=== PATIENT | female | born 1950 | race Caucasian/White ===

== ENCOUNTER 2016-08-17 05:45 | Observation (INO) | payer BC ==
[2016-08-17] MEDS ORDERED: LIDOCAINE 1% 2 ML INJ ID PRN (05:47)
[2016-08-17] MEDS ORDERED: LR 1,000 ML IV ONE (05:47)
[2016-08-17] MEDS ORDERED: PHENAZOPYRIDINE HCL 200 MG TAB ONE (06:32)
[2016-08-17] MEDS ORDERED: CEFAZOLIN 2 GM/DEXTROSE/100 ML BAG IV ONE (06:32)
[2016-08-17] MEDS ORDERED: PHENAZOPYRIDINE HCL 200 MG TAB PO ONE (06:45)
[2016-08-17] MEDS ORDERED: PROPOFOL 200 MG/20 ML VIAL ONE (07:14)
[2016-08-17] MEDS ORDERED: MIDAZOLAM 2 MG/2 ML VIAL ONE (07:14)
[2016-08-17] MEDS ORDERED: DEXAMETHASONE 4 MG/ML VIAL ONE ×2 (07:15)
[2016-08-17] MEDS ORDERED: ROCURONIUM 100 MG/10 ML VIAL ONE (07:15)
[2016-08-17] MEDS ORDERED: METOCLOPRAMIDE 10 MG/2 ML VIAL ONE (07:15)
[2016-08-17] MEDS ORDERED: LIDOCAINE 2% 100 MG/5 ML SYR ONE (07:15)
[2016-08-17] MEDS ORDERED: ONDANSETRON 4 MG/2 ML VIAL ONE (07:15)
[2016-08-17] MEDS ORDERED: RANITIDINE 50 MG/2 ML VIAL ONE (07:15)
--- NOTE | 2016-08-17 07:16 | PDHPUP ---
History & Physical Update H&P update statement: This history and physical update is based on an assessment of the patient which was completed after admission or registration (within 24 hours), but prior to the surgery/procedure. H&P update: H&P reviewed & patient examined, no change in patient's condition since H&P completed
[2016-08-17] MEDS ORDERED: BUPIVACAINE/EPI 0.5% 30 ML SDV ONE (07:18)
--- NOTE | 2016-08-17 07:18 | PDGENHP ---
History and Physical History and Physical: Patient with uterovaginal prolapse. scheduled for robotic hyst, BSO, sacrocolpopexy, TOT, cyst. See H&P from office for complete note.
--- NOTE | 2016-08-17 07:22 | PDGENHP ---
History and Physical History and Physical: Assessment and Plan: We will notify Trinh of her endometrial biopsy results. We then will determine if any other evaluation or treatment is required. - Surgical Pathology Request 2. Lateral cystocele Trinh has borderline third-degree symptomatic pelvic organ prolapse involving all 3 compartments. We reviewed all conservative and surgical options. A #2 Gellhorn pessary was placed today. We will talk at the end of the week to see how it is working. If she desires surgical treatment, we discussed the risks and benefits of a [place] tissue repair versus a sacral colpopexy. Although her tissue quality appears adequate, she has prolapse in all 3 compartments in addition to a history of an umbilical hernia repair. She also is an active woman. As a result, I likely would favor a sacral colpopexy. 3. Rectocele 4. Genuine stress incontinence, female She would benefit from a mid urethral sling. ~~ Subjective: Patient ID: Trinh Talbertis a 66 y.o.~female~who [facility] to [facility]~for prolapse. HPI~ Trinh Talbertpresents for a preoperative visit. She is scheduled for a robotic supracervical hysterectomy, BSO, sacrocervicopexy with mesh, mid-urethral sling , cystoscopy and perineorrhaphy. The risks, benefits, and alternatives were presented and informed consent was obtained. ~40 minutes of this 40 minute appointment was spent counceling, reviewing the procedure in detail, and discussing the preoperative and postoperative instructions. Below is a copy of our prior visit note. Lexus is a 65-year-old, para one woman, referred by Dr. Murphy for prolapse. She has had symptoms of prolapse for many years. She saw a nurse practitioner at [facility]'s office about 5 years ago and was told she had apical and posterior prolapse. She felt pressured to schedule surgery. However, she decided to try a pessary. It sounds as though she had a ring with support. The pessary apparently fell out and she was told no other pessary would work. Over time, her symptoms have slowly worsened. Previously, she could pass a bowel movement by splinting. Now, she must digitally remove stool from the lower rectum. She uses MiraLax and Colace for constipation. She feels pelvic pressure at the end of the day and often must sit in a recliner to relieve her symptoms. She leaks urine with coughing, laughing, and sneezing. She also has difficulty emptying her bladder and she feels she has small volumes. She wakes up 3-4 times per night with a need to urinate. Additionally, she has some urgency and urgency incontinence. She feels pelvic heaviness and low back pain on a daily basis. She has stopped intercourse secondary to her prolapse symptoms. Additionally, she underwent a screening pelvic ultrasound, which showed her endometrium measuring 2 mm. However, there was focal thickening near the fundus measuring 4.3 mm. Her one was a forceps-assisted delivery after 5 hours of pushing. The child was occiput posterior. Her medical history is significant for an umbilical hernia repair in 1971. No mesh was used. Past Medical History Past Medical History: Diagnosis Date Depression Hyperlipidemia Lumbar facet joint syndrome Past Surgical History Past Surgical History: Procedure Laterality Date BREAST SURGERY liposuction ROTATOR CUFF REPAIR TUBAL LIGATION UMBILICAL HERNIA REPAIR CURRENT MEDICATIONS: Current Outpatient Prescriptions Medication Sig aspirin 81 mg EC tablet Take 81 mg by mouth daily. atorvaSTATin (LIPITOR) 20 mg tablet Take 20 mg by mouth daily. CHOLECALCIFEROL, VITAMIN D3, (VITAMIN D3 PO) DOCOSAHEXANOIC ACID/EPA (FISH OIL PO) DOCUSATE SODIUM (COLACE PO) escitalopram oxalate (LEXAPRO) 10 mg tablet Take 10 mg by mouth daily. FOLIC ACID/MULTIVIT-MIN/LUTEIN (CENTRUM SILVER PO) VITAMIN K2 PO No current facility-administered medications for this visit. ALLERGIES:~Sulfa (sulfonamide antibiotics) I have reviewed, verified and agree with the past medical, surgical, , family, social ~and ROS~history as documented by the RN~today. Review of Systems ~~ Objective: Visit Vitals BP 102/58 Pulse 78 Temp 36.6 C (97.9 F) (Temporal Artery) Resp 14 Ht 1.797 m (5' 10.75") Wt 84.3 kg (185 lb 12.8 oz) SpO2 96% BMI 26.1 kg/m2 Physical Exam Gen: This is an alert, well developed woman in no distress. Neuro: She moves all extremities. Psych: She is appropriate, oriented, with normal affect. Neck: No thyroid enlargement, adenopathy, or tenderness. Lungs: Clear to ascultation, no wheezes or rales. Heart: Regular rate and rhythm without obvious murmurs. Abdomen: Soft, non-tender, without guarding, rebound, or masses. Extremities: No edema or cyanosis. Pelvic: Normal external genitalia. Non-gaping introitus, vagina without discharge. Cervix without lesions or discharge. Uterus normal sized, mobile, non -tender. Adnexa non-tender without enlargement. The introitus is moderately gaping. She has a second-degree/third degree cystourethrocele, a second-degree/third degree rectocele, and a second-degree uterine prolapse. The urethra is mobile with obvious leakage of urine with coughing. Procedure: The cervix was cleaned with Betadine. An endometrial biopsy was performed in standard fashion. A scant specimen was obtained. She was fitted with a #2 Gellhorn pessary. She tolerated this well in the office. DATA: I have reviewed patient's outside medical records. Summary findings include as noted above. ~~ TIME/COMMUNICATION: I personally spent a total of 50~minutes. Of that 40~minutes was counseling/ coordination of patient's care. See my note above for details. Lang Jimenez MD Board Certified Female Pelvic Medicine and Reconstructive Surgery Director of Minimally Invasive Gynecologic Surgery, [facility] Minimally Invasive Gynecologic Surgery Designee
--- NOTE | 2016-08-17 08:22 | PDANEPAE ---
ANE History of Present Illness uterine prolapse ANE Past Medical History - Cardiovascular History Hx Hypertension: No Hx Arrhythmias: No Hx Chest Pain: No Hx Coronary Artery / Peripheral Vascular Disease: No Hx CHF / Valvular Disease: No Hx Palpitations: No - Pulmonary History Hx COPD: No Hx Asthma/Reactive Airway Disease: No Hx Recent Upper Respiratory Infection: No Hx Oxygen in Use at Home: No - Neurologic History Hx Cerebrovascular Accident: No Hx Seizures: No Hx Dementia: No - Endocrine History Hx Diabetes: No - Renal History Hx Renal Disorders: Yes - Liver History Hx Hepatic Disorders: No - Neurological & Psychiatric Hx Hx Neurological and Psychiatric Disorders: Yes - Cancer History Hx Cancer: No - Congenital Disorder History Hx Congenital Disorders: No - GI History Hx Gastrointestinal Disorders: No - Chronic Pain History Chronic Pain: Yes (LUMBAR BACK PAIN) ANE Review of Systems - Exercise capacity METS (RN): 4 METS - Systems Cardiac: Reports: other (murmur) ANE Patient History - Allergies Allergies/Adverse Reactions: Sulfa (Sulfonamide Antibiotics) Allergy (Verified 07/11/16 09:53) Swelling/neck,face,throat - Home Medications Home Medications: Aspirin [Aspirin 81mg (*)] 81 mg PO DAILY 07/11/16 [Last Taken 08/10/16] Atorvastatin Calcium [Lipitor 20 mg (*)] 20 mg PO HS 07/11/16 [Last Taken 19:00] Cholecalciferol Vit D3 [Vitamin D3 (*)] 5,000 units PO DAILY 07/11/16 [Last Taken 08/10/16] Docusate Sodium [Colace 100 MG (*)] 100 mg PO BID 07/11/16 [Last Taken 08/10/16] Escitalopram Oxalate [Lexapro] 10 mg PO HS 07/11/16 [Last Taken 08/16/16 19:00] Herbals/Supplements -Info Only 1 each PO DAILY 07/11/16 [Last Taken 08/10/16] Polyethylene Glycol 3350 [Miralax 17 gm (*)] 17 gm PO DAILY 07/11/16 [Last Taken 08/10/16] - NPO status NPO Since - Liquids (Date): 08/16/16 NPO Since - Liquids (Time): 21:00 NPO Since - Solids (Date): 08/16/16 NPO Since - Solids (Time): 21:00 - Anes Hx Anes Hx: no prior problems - Smoking Hx Smoking Status: Former smoker - Family Anes Hx Family Hx Anesthesia Complications: NEG ANE Labs/Vital Signs - Vital Signs Blood Pressure: 113/68 Heart Rate: 65 Respiratory Rate: 18 O2 Sat (%): 93 Height: 180.34 cm Weight: 80.739 kg ANE Physical Exam - Airway Mallampati Score: Class 2 Mouth exam: normal dental/mouth exam - Pulmonary Pulmonary: no respiratory distress - Cardiovascular Cardiovascular: regular rate and rhythym - ASA Status ASA Status: II
[2016-08-17] MEDS ORDERED: PHENAZOPYRIDINE HCL 200 MG TAB PO SCH (09:00)
[2016-08-17] MEDS ORDERED: ceFAZolin 2 GM/DEXTROSE 100 ML IV ONE (09:00)
[2016-08-17] MEDS ORDERED: ONDANSETRON 4 MG/2 ML VIAL IVP PRN (09:58)
[2016-08-17] MEDS ORDERED: ALBUTEROL 3 ML DEYVIAL IH PRN (09:58)
[2016-08-17] MEDS ORDERED: PROMETHAZINE HCL 25 MG/ML INJ IVP PRN (09:58)
[2016-08-17] MEDS ORDERED: ACETAMINOPHEN 500 MG TAB PO PRN (09:58)
[2016-08-17] MEDS ORDERED: HYDROCODONE/APAP 5/325 TAB PO PRN ×2 (09:58→10:18)
[2016-08-17] MEDS ORDERED: NALOXONE HCL 0.4 MG/ML INJ IVP PRN (09:58)
[2016-08-17] MEDS ORDERED: OXYCODONE/APAP 5/325 TAB PO PRN (09:58)
--- NOTE | 2016-08-17 10:00 | POSTANESTH ---
Post Anesthetic Evaluation Respiratory Status: Normal, Stable Level of Consciousness/Mental Status: Can Participate in Eval Pain Control: Adequate, Prn Tx Ordered Nausea/Vomiting Control: Adequate, Prn Tx Ordered Complications Possibly Related to Anesthesia: None Noted
[2016-08-17] MEDS ORDERED: MEPERIDINE 25 MG/ML SYR ONE (10:03)
[2016-08-17] MEDS: MEPERIDINE 25 MG/ML SYR IVP PRN ×2 (10:07→10:16)
[2016-08-17] MEDS ORDERED: HYDROmorphONE/DILAUDID 1 MG/ML SYR ONE (10:09)
[2016-08-17] MEDS ORDERED: fentaNYL 100 MCG/2 ML INJ ONE (10:09)
--- NOTE | 2016-08-17 10:11 | POSTOPPROG ---
Post Op Note Date of Operation: 08/17/16 Surgeon: Lang Jimenez [employer] Legal Secretary: Bernadine Hirsch Anesthesiologist: Saranya Anesthesia: GET(General Endotracheal) Pre-op Diagnosis: uterovaginal prolapse, stress incontinence Post-op Diagnosis: same Procedure: robotic hyst, BSO, sacrocolpopexy, TOT sling, cyto Findings: normal ureteral function at end of case Inf/Abcess present in the surg proc area at time of surgery?: No EBL: Minimal Complications: None
[2016-08-17] MEDS: fentaNYL 100 MCG/2 ML INJ IVP PRN ×3 (10:13→10:29)
[2016-08-17] MEDS ORDERED: LR 1,000 ML IV SCH (10:30)
[2016-08-17] MEDS: HYDROmorphONE/DILAUDID 1 MG/ML SYR IVP PRN ×3 (10:34→11:04)
[2016-08-17] MEDS: SIMETHICONE 80 MG TAB CHEW PO SCH ×3 (14:52→20:27)
[2016-08-17] MEDS: OXYCODONE/APAP 5/325 TAB PO PRN ×3 (14:52→23:20)
[2016-08-17] MEDS: IBUPROFEN 600 MG TAB PO SCH ×2 (14:54→22:25)
[2016-08-17] MEDS: KETOROLAC 30 MG/1 ML SDV IVP SCH ×3 (17:10→23:20)
--- NOTE | 2016-08-17 18:35 | GOP ---
[f rep st] OPERATIVE REPORT DATE OF OPERATION: 08/17/2016 SURGEON: Lang Jimenez MD BURR PICKER: Bernadine Hirsch CFA. ANESTHESIA: General. PREOPERATIVE DIAGNOSIS: 1. Cystocele. 2. Rectocele. 3. Uterine prolapse. 4. Stress urinary incontinence. POSTOPERATIVE DIAGNOSIS: 1. Cystocele. 2. Rectocele. 3. Uterine prolapse. 4. Stress urinary incontinence. PROCEDURE PERFORMED: 1. Robotic-assisted laparoscopic hysterectomy, bilateral salpingo-oophorectomy. 2. Robotic-assisted laparoscopic sacrocervicopexy with mesh. 3. Repair of cystocele and rectocele. 4. Transobturator sling. 5. Cystoscopy. 6. Perineorrhaphy. FINDINGS: SPECIMENS: Uterus, bilateral tubes, and ovaries. ESTIMATED BLOOD LOSS: Scant. DESCRIPTION OF PROCEDURE: The patient was taken to the operating room. She was identified. Genera l anesthesia was administered and found to be adequate. She was placed in the lithotomy position an d prepared and draped in normal sterile fashion. A [place] catheter was placed in her bladder. A 1 cm intraumbilical incision was made with a scalpel. The Veress needle with the CO2 gas flowing was advanced into the peritoneal cavity. The abdomen was then insufflated with carbon dioxide gas. The 12 mm trocar followed by the laparoscope were then inserted. The upper abdomen was unremarkabl e. Two lateral ports were placed on either side under direct visualization. She then was placed in Trendelenburg position, and the [place] robot docked on the left side. The instruments were then brought into the abdominal cavity under direct visualization. The left round ligament was divided. The anterior leaf of the broad ligament was incised to the bif urcation of the left common iliac vessels. A window was created in the posterior leaf to skeletoniz e the infundibulopelvic vessels. They were then cauterized and transected. The anterior leaf of th e broad ligament was then incised over the left uterine vessels and across the cervix. The bladder was gently dissected off the cervix and upper vagina. The left uterine vasculature was then cauteri zed and transected. The exact same procedure was performed on the patient's right side. The uterus was then bivalved to aid in removal through the umbilicus. The uterus and upper 2/3 of the cervix were amputated from the lower third of the cervix with the hot dilan. The specimen was then placed in the right upper quadrant for later removal. The Colpo-Probe was placed in the vagina. The bladder was further dissected off the anterior vagina l wall down to the level of the bladder neck. The rectovaginal space was then entered, and the rect um dissected off the posterior vaginal wall down to the level of the perineal body. Measurements we re then obtained, and the mesh trimmed to size. The sigmoid colon was then retracted laterally. The peritoneum over the sacral promontory was incis ed, and the fat pad gently dissected off the anterior longitudinal ligament. The mesh was then brou ght into the abdominal cavity. Three sutures of 4-0 [place] were used to attach the distal posteri or mesh to the perineal body. Two additional rows of [place] sutures were placed posteriorly. Thr ee rows were placed anteriorly to suture the mesh down to the level of the bladder neck and laterall y to the paravaginal tissue. The Colpo-Probe was then removed. The sacral arm of the mesh was plac ed over the promontory, and the tension adjusted. I then scrubbed back into the case to examine the vagina. The tension was further adjusted to resolve the cystocele and rectocele without undue tens ion on the vagina. Two sutures of 2-0 [place] were used to attach the sacral arm of the mesh to th e anterior longitudinal ligament at the level of the upper 1st sacral body below the intervertebral disc space. The excess mesh was then trimmed. The peritoneum was then closed over the entire mesh. The robot was then undocked. The specimen was removed through the umbilicus. The fascia closed w ith 0 Vicryl, skin with 4-0 Monocryl and surgical adhesive. Attention was then turned to the sling portion of the procedure. A mid urethral incision was made w ith a scalpel. Tunnels were created bilaterally to the obturator internus muscles. Skin incisions were made over the obturator notches. The curved trocar was placed through the left skin incision, redirected around the ischial pubic rami, and out through the vaginal incision using the vaginal fin becca as a guide. The sling was then attached and brought out along the same course. The exact same procedure was performed on the patient's right side. The sling was then adjusted to allow a small m id urethral gap. The vaginal epithelium was closed with 2-0 Vicryl, skin with 4-0 Monocryl. Cystoscopy was then performed. Both ureters had vigorous jets of urine. There was no evidence of b ladder nor urethral injury seen. No mesh nor suture was seen within the bladder nor urethra. No ob vious pathology was seen. A perineorrhaphy was then performed by plicating the bulbous spongiosis and transverse perineal musc les in the midline. Vaginal packing was then placed. Anesthesia was reversed, and the patient take n to PACU awake in stable condition. COMPLICATIONS: None. DISPOSITION: Patient stable to PACU. /[id number]/MODL
[2016-08-17] MEDS: DOCUSATE SODIUM 100 MG CAP PO SCH (20:27)
[2016-08-17] MEDS: DIAZEPAM 10 MG/2 ML SYR IVP PRN (20:54)
[2016-08-17] MEDS ORDERED: ESCITALOPRAM OXALATE 10 MG TAB PO SCH (21:00)
[2016-08-18] MEDS: OXYCODONE/APAP 5/325 TAB PO PRN ×4 (03:52→16:06)
[2016-08-18] MEDS: DIAZEPAM 10 MG/2 ML SYR IVP PRN (03:53)
[2016-08-18 04:31] VITALS: RESP 15; TEMP 98
[2016-08-18 05:08] LABS: % IMMATURE GRANULYOCYTES 0.5 % (0.0-1.1); ABSOLUTE IMMATURE GRANULOCYTES 0.03 10^3/uL (0.00-0.10); ADD DIFF? NO; ADD MORPH? NO; ADD SCAN? NO; ATYPICAL LYMPHOCYTE FLAG 0 (0-99); FRAGMENT RBC FLAG 0 (0-99); HEMATOCRIT 33.5 % (38.0-47.0); HEMOGLOBIN 11.4 g/dL (12.6-16.3); LEFT SHIFT FLG 0 (0-99); LIPEMIA HEMOLYSIS FLAG 90 (0-99); MEAN CELL HEMOGLOBIN 32.4 pg (27.9-34.1); MEAN CELL VOLUME 95.2 fL (81.5-99.8); MEAN PLATELET VOLUME 9.7 fL (8.7-11.7); PLATELET CLUMPS FLAG 0 (0-99); PLATELET COUNT 187 10^3/uL (150-400); RED BLOOD CELL COUNT 3.52 10^6/uL (4.18-5.33); RED CELL DISTRIBUTION WIDTH 12.5 % (11.5-15.2)
[2016-08-18] MEDS: IBUPROFEN 600 MG TAB PO SCH ×2 (06:00→14:22)
[2016-08-18] MEDS ORDERED: LR 500 ML IV ONE (06:00)
[2016-08-18] MEDS: KETOROLAC 30 MG/1 ML SDV IVP SCH (06:03)
[2016-08-18] MEDS: SIMETHICONE 80 MG TAB CHEW PO SCH ×2 (07:48→12:27)
[2016-08-18] MEDS: DOCUSATE SODIUM 100 MG CAP PO SCH (07:49)
[2016-08-18] MEDS ORDERED: ASPIRIN 81 MG CHEWABLE TAB PO SCH (09:00)
[2016-08-18] MEDS ORDERED: POLYETHYLENE GLYCOL 3350 17 GM PKT PO SCH (09:00)
[2016-08-18] MEDS ORDERED: OPIUM/BELLADONNA ALKALO SUPP PR PRN (09:38)
--- NOTE | 2016-08-18 09:41 | SOAPPROG ---
SOAP Progress Note Assessment/Plan: Assessment: Doing well overall, await voiding. Plan: 08/18/16 09:39 Discharge home. If not voiding adequately will discharge home with Greenfield and perform bladder trial in office tomorrow or monday. Subjective: No complaints. Pain controlled. No void yet. Objective: Vital Signs Temp Pulse Resp BP Pulse Ox 36.7 C 82 15 107/47 L 94 08/18/16 07:51 08/18/16 07:51 08/18/16 04:00 08/18/16 07:51 08/18/16 07:51 Laboratory Results 08/18/16 04:34 08/17/16 08/18/16 08/19/16 05:59 05:59 05:59 Intake Total 2350 Output Total 1745 Balance 605 - Pending Discharge Pending Discharge Within 24 Hours: Yes Pending Discharge Date: 08/19/16 Pending Discharge Time: 11:00 Physical Exam - Physical Exam General Appearance: WD/WN, alert, no apparent distress Respiratory: lungs clear Cardiac/Chest: regular rate, rhythm Abdomen: normal bowel sounds, non-tender, soft (Incisions clean, dry, and intact.) ICD10 Worksheet Patient Problems: Problems Problem Status Onset Cystocele Acute Stress incontinence in female Acute - ICD10 Problem Qualifiers (1) Cystocele Qualifiers: Cystocele location: C (2) Stress incontinence in female
[2016-08-18 11:42] VITALS: BP 102/52; PULSE 51; O2SAT 93
--- NOTE | 2016-08-19 06:35 | GDS ---
[f rep st] DISCHARGE SUMMARY DISCHARGE DIAGNOSES: 1. Cystocele. 2. Uterine prolapse. 3. Rectocele. 4. Stress urinary incontinence. PROCEDURES: 1. Robotic-assisted laparoscopic hysterectomy, bilateral salpingo-oophorectomy. 2. Robotic-assisted laparoscopic sacrocervicopexy with mesh. 3. Repair of cystocele and rectocele. 4. Transobturator sling. 5. Perineorrhaphy. 6. Cystoscopy. HISTORY: The patient suffered from symptomatic pelvic organ prolapse and stress incontinence. She was taken to the operating room on 08/17/2016 where she underwent reconstructive surgery. She ernesto ated the procedures well. Her postoperative course was relatively uneventful. The morning after gomez rgery, she was ambulating, voiding, and tolerating a general diet. It did take her until the aftern oon until she was voiding more normally. She was discharged home on postoperative day #1 in good co ndition. MEDICATIONS: Included ibuprofen and [place] for pain. FOLLOWUP: She is to follow up in the office 2 weeks after discharge. /[id number]/MODL
== END 2016-08-18 16:22 | disposition home or self-care (01) ==
LOC: F3E 05:45 → PREINTOOBSV 10:32 → PREOBSVTOIN 10:42 → F3E 11:31
PROVIDERS: ADMIT Obstetrics & Gynecology; ATTEND Obstetrics & Gynecology
DX: N81.2 Incomplete uterovaginal prolapse (principal); N81.12 Cystocele, lateral; N81.6 Rectocele; N39.3 Stress incontinence (female) (male); R39.15 Urgency of urination; F32.9 Major depressive disorder, single episode, unspecified; E78.5 Hyperlipidemia, unspecified; Z87.891 Personal history of nicotine dependence; Z88.2 Allergy status to sulfonamides
CPT/HCPCS: 57250; 57288; 57425; 58542; G0378; C1763; C1771; J0690; J1100; J1170; J1885; J2001; J2250; J2405; J2704; J2765; J2780; J3010

== ENCOUNTER → 2018-06-07 | Outpatient (CLI) | payer OTHER, MEDICARE | LOC: FIMAGING 14:16 | PROVIDERS: ATTEND Internal Medicine | DX: M81.0 Age-related osteoporosis without current pathological fracture (principal) ==